=== PATIENT | female | born 1995 | race Two or more races ===

== ENCOUNTER 2022-03-04 18:20 | Emergency (ER) | payer MEDICAID, OTHER ==
[~2022-03-04] VITALS: Ht 175.3 cm; Wt 77.5 kg
[2022-03-04 20:09] VITALS: BP 103/68
== END 2022-03-05 00:09 | disposition left against medical advice (07) ==
LOC: ER 18:20
DX: S61.213A Laceration without foreign body of left middle finger without damage to nail, initial encounter (principal); Z53.21 Procedure and treatment not carried out due to patient leaving prior to being seen by health care provider; X58.XXXA Exposure to other specified factors, initial encounter; Y93.89 Activity, other specified; Y92.89 Other specified places as the place of occurrence of the external cause; Y99.8 Other external cause status